=== PATIENT | female | born 1985 | race Caucasian/White ===

== ENCOUNTER 2016-09-11 23:09 | Emergency (ER) | payer OTHER ==
[~2016-09-11] VITALS: Ht 175.3 cm; Wt 109.7 kg
[2016-09-11 23:13] VITALS: TEMP 36.9; Ht 175.3 cm; Wt 109.7 kg
[2016-09-11] MEDS ORDERED: KETOROLAC TROMETHAMINE 60 MG/2 ML VIAL IM STA (23:37)
[2016-09-11] MEDS ORDERED: AMOX875T PO (23:39)
[2016-09-11] MEDS ORDERED: METH4PAK PO (23:40)
[2016-09-11] MEDS ORDERED: AMOXICIL/CLAVU 875MG HOME PACK PO ONE (23:45)
--- NOTE | 2016-09-11 23:57 | EMERGENCY ROOM VISIT NOTE ---
ED Visit Note First contact with patient: 23:20 I have seen and examined this patient with Bryan Greenwood and generally agree with the treatment plan as discussed. Current/Historical Medications Scheduled Amoxicillin & Pot Clavulanate (Augmentin 875-125 mg), 1 TAB PO BID Methylprednisolone (Medrol Dosepak), 1 PKT PO DAILY Allergies Coded Allergies: Cephalexin (Verified Allergy, Intermediate, UTI, 09/11/16) Tramadol (Verified Allergy, Intermediate, Breathing difficulty, 09/11/16) Cefaclor (Verified Allergy, Unknown, RASH, 09/11/16) Vital Signs Date Time Temp Pulse Resp B/P Pulse Ox O2 Delivery O2 Flow Rate FiO2 09/11/16 23:13 36.9 81 19 182/103 100 Room Air Departure Information Impression Primary Impression: Back ache Additional Impression: Acute sinusitis Dispostion Home / Self-Care Condition GOOD Prescriptions Methylprednisolone (MEDROL DOSEPAK) 4 Mg Abel 1 PKT PO DAILY, #1 PKT Prov: Bryan Greenwood PA-C 09/11/16 Amoxicillin & Pot Clavulanate (Augmentin 875-125 mg) 1 Tab Tab 1 TAB PO BID for 9 Days, #18 TAB Prov: Bryan Greenwood PA-C 09/11/16 Forms HOME CARE DOCUMENTATION FORM, IMPORTANT VISIT INFORMATION Patient Instructions My [facility] Additional Instructions You were seen and evaluated today on an emergency basis only. This is not a substitute for, or an effort to provide, complete comprehensive medical care. It is not possible to recognize and treat all injuries or illnesses in a single emergency department visit. For this reason it is recommended that you followup with your primary care physician next week for ongoing care and evaluation. For baseline pain relief you may alternate ibuprofen and acetaminophen every 4 hours for pain control. Take 600 mg ibuprofen (Advil) and then 4 hours later take 1000 mg acetaminophen (Tylenol). Do not take more than 3000 mg acetaminophen in a single day. Amoxicillin Clavulanate (Augmentin) 875mg: Take one pill twice daily for 10 total days for your infection. All antibiotics can cause diarrhea. If this occurs and you feel worse or it does not resolve in 1-2 days follow up with your doctor or return to the Emergency Department as this could be signs of serious underlying problems. Any medication can cause an allergic reaction, stop the pills immediately and return to the ER for rash, hives, breathing difficulties, or swelling. Take a Medrol Dosepak as prescribed. You are welcome to return to the emergency department anytime with new, worsening, or concerning symptoms. Problem Qualifiers
[2016-09-11] MEDS ORDERED: IBUP600T44 PO (23:59)
[2016-09-11] MEDS ORDERED: HYDR25TA4 PO (23:59)
[2016-09-11] MEDS ORDERED: ZOLP10TA PO (23:59)
[2016-09-11] MEDS ORDERED: LISI20TA3 PO (23:59)
[2016-09-11] MEDS ORDERED: NRN600 PO (23:59)
[2016-09-11] MEDS ORDERED: AMLO-110 PO (23:59)
[2016-09-12] MEDS ORDERED: VENL150C PO
[2016-09-12 01:04] VITALS: BP 135/81; PULSE 62; O2SAT 99
--- NOTE | 2016-09-15 22:45 | EMERGENCY ROOM VISIT NOTE ---
History First contact with patient: 23:20 Chief Complaint: BACK PAIN Stated Complaint: BACK PAIN & HEADACHE History of Present Illness The patient is a 31 year old female who presents to the Emergency Room with complaints of right-sided facial pain as well as low back pain. The patient works locally, and has to stand several hours while at work. She states this worsens her back pain. Her discomfort has not been improved with ibuprofen or Tylenol. Additionally she states that she has right-sided facial pain without injury or trauma. She is also complaining of a sore throat which has been going off and on for the past week. The patient rates her overall discomfort a 7/10. She has been able to use the bathroom. She denies chance of . She does not have a previous history of back surgery. Review of Systems More than 10 systems were reviewed and otherwise negative with the exception of history of present illness. Past Medical/Surgical History History of depression, hypertension, chronic pain Family History No pertinent family history Social History Smoking Status: Current Every Day Smoker Occupation Status: employed Current/Historical Medications Scheduled Amlodipine (Norvasc), 5 MG PO DAILY Amoxicillin & Pot Clavulanate (Augmentin 875-125 mg), 1 TAB PO BID Gabapentin (Gabapentin), 600 MG PO TID Hydrochlorothiazide (Hctz), 25 MG PO DAILY Ibuprofen (Motrin), 600 MG PO QID Lisinopril (Prinivil), 20 MG PO BID Methylprednisolone (Medrol Dosepak), 1 PKT PO DAILY Venlafaxine Hcl (Effexor Xr), 1 CAP PO DAILY Scheduled PRN Zolpidem Tartrate (Ambien), 10 MG PO HS PRN for Sleep Allergies Coded Allergies: Cephalexin (Verified Allergy, Intermediate, UTI, 09/11/16) Tramadol (Verified Allergy, Intermediate, Breathing difficulty, 09/11/16) Cefaclor (Verified Allergy, Unknown, RASH, 09/11/16) Physical Exam Vital Signs Date Time Temp Pulse Resp B/P Pulse Ox O2 Delivery O2 Flow Rate FiO2 09/12/16 01:04 62 18 135/81 99 Room Air 09/11/16 23:13 36.9 81 19 182/103 100 Room Air Pain Rating (0-10): 6.0 Physical Exam VITALS: Vitals are noted on the nurse's note and reviewed by myself. Vital signs stable. GENERAL: Well-developed, well-nourished, white female, who is in no acute distress and resting comfortably. Patient is cooperative with the examination. HEAD: Normocephalic atraumatic. Positive maxillary and frontal sinus tenderness to percussion on the right. EARS: External ear normal. External auditory canals clear, tympanic membranes pearly abarca without erythema or effusion bilaterally. No mastoid tenderness. EYES: Pupils equal round and reactive to light and accommodation. Conjunctivae without injection, sclerae without icterus. Extraocular movements intact. NOSE: Patent, turbinates without inflammation or discharge. MOUTH: Mucous membranes moist. Tonsils are not enlarged. Pharynx without erythema, blood, or exudate. Uvula midline. Airway patent. NECK: Supple without nuchal rigidity. No lymphadenopathy. No thyromegaly. Cervical spine is nontender. HEART: Regular rate and rhythm without murmurs gallops or rubs. LUNGS: Clear to auscultation bilaterally without wheezes, rales or rhonchi. No retractions or accessory muscle use. ABDOMEN: Positive normal bowel sounds x 4. Soft, nontender, without masses or organomegaly. No guarding or rebound tenderness. MUSCULOSKELETAL: No muscle atrophy, erythema, or edema noted. Full range of motion without joint tenderness in all extremities. No tenderness to palpation. Normal gait. Strength 5/5 throughout. Mild lower lumbar spine tenderness. Negative straight leg raise. No saddle paresthesias. NEURO: Patient was alert and oriented to person place and time. CN II through XII grossly intact. Deep tendon reflexes 2+ throughout. Medical Decision & Procedures Medications Administered Medications (Trade) Dose Ordered Sig/Aliyah Route Start Time Stop Time Status Last Admin Dose Admin Amoxicillin/ Clavulanate Potassium (Augmentin 875MG Home Pack) 1 homepack UD ONCE PO 09/11/16 23:45 09/11/16 23:46 DC 09/12/16 01:00 1 HOMEPACK Ketorolac Tromethamine (Toradol Inj) 60 mg NOW STAT IM 09/11/16 23:37 09/11/16 23:39 DC 09/12/16 01:00 60 MG ED Course Physical exam and history were performed. Nursing notes and EMR were reviewed. Patient appears to have back pain as well as what seems to be in acute sinusitis on exam. The patient is nontoxic and certainly without neurologic deficit. Her physical exam is fairly benign. I will treat her with a course of Augmentin to help her sinuses. Additionally she will be given a course of prednisone which will help her sinuses, and her back. The patient will need to follow with her primary care physician for further care and management. She may use [id number] analgesics and was otherwise invited back to the ER with any new, worsening, or concerning symptoms. The chart was completed utilizing [employer] Speech Voice Recognition Software. Grammatical errors, random word insertions, pronoun errors, and incomplete sentences are an occasional consequence of this system due to software limitations, ambient noise, and hardware issues. Any formal questions or concerns about the content, text, or information contained within the body of this dictation should be directly addressed to the provider for clarification. . Medical Decision Differential diagnosis: Etiologies such as musculoskeletal, disc herniation, fracture, aortic disease, metastatic disease, cord compression, discitis, infection, renal colic, gastrointestinal, acute exacerbation of chronic back pain, sciatica, cauda equina, as well as others were entertained. Impression Primary Impression: Back ache Additional Impression: Acute sinusitis Departure Information Dispostion Home / Self-Care Condition GOOD Prescriptions Methylprednisolone (MEDROL DOSEPAK) 4 Mg Abel 1 PKT PO DAILY, #1 PKT Prov: Bryan Greenwood PA-C 09/11/16 Amoxicillin & Pot Clavulanate (Augmentin 875-125 mg) 1 Tab Tab 1 TAB PO BID for 9 Days, #18 TAB Prov: Byran Greenwood PA-C 09/11/16 Forms HOME CARE DOCUMENTATION FORM, IMPORTANT VISIT INFORMATION Patient Instructions My [facility] Additional Instructions You were seen and evaluated today on an emergency basis only. This is not a substitute for, or an effort to provide, complete comprehensive medical care. It is not possible to recognize and treat all injuries or illnesses in a single emergency department visit. For this reason it is recommended that you followup with your primary care physician next week for ongoing care and evaluation. For baseline pain relief you may alternate ibuprofen and acetaminophen every 4 hours for pain control. Take 600 mg ibuprofen (Advil) and then 4 hours later take 1000 mg acetaminophen (Tylenol). Do not take more than 3000 mg acetaminophen in a single day. Amoxicillin Clavulanate (Augmentin) 875mg: Take one pill twice daily for 10 total days for your infection. All antibiotics can cause diarrhea. If this occurs and you feel worse or it does not resolve in 1-2 days follow up with your doctor or return to the Emergency Department as this could be signs of serious underlying problems. Any medication can cause an allergic reaction, stop the pills immediately and return to the ER for rash, hives, breathing difficulties, or swelling. Take a Medrol Dosepak as prescribed. You are welcome to return to the emergency department anytime with new, worsening, or concerning symptoms. Problem Qualifiers
== END 2016-09-12 01:07 | disposition home or self-care (01) ==
LOC: C.EDB 23:10
DX: M54.5 Low back pain (principal); J01.90 Acute sinusitis, unspecified; I10 Essential (primary) hypertension; G89.29 Other chronic pain; F32.9 Major depressive disorder, single episode, unspecified; F17.200 Nicotine dependence, unspecified, uncomplicated; Z79.899 Other long term (current) drug therapy